=== PATIENT | female | born 1960 | race Hispanic/Latino ===

== ENCOUNTER 2021-04-06 22:45 | Emergency (ER) | payer OTHER ==
[~2021-04-06] VITALS: Ht 162.6 cm; Wt 81.6 kg
[2021-04-06 23:11] LABS: BASOPHILS % (AUTO) 0.9 % (0.0-5.0); EOSINOPHILS % (AUTO) 1.6 % (0.0-8.0); HEMATOCRIT 41.4 % (36-48); LYMPHOCYTES % (AUTO) 41.5 % (21.0-51.0); MEAN CORPUSCULAR HEMOGLOBIN 27.6 pg (27.0-33.0); MEAN CORPUSCULAR HGB CONC 31.9 g/dL (32.0-36.0); MEAN CORPUSCULAR VOLUME 86.6 fL (79-99); MONOCYTES % (AUTO) 6.4 % (3.0-13.0); NEUTROPHILS % (AUTO) 49.4 % (40.0-77.0); PLATELET COUNT (AUTO) 330 K/uL (130-400); RED BLOOD CELL COUNT(AUTO) 4.78 MIL/uL (4.00-5.50); RED CELL DISTRIBUTION WIDTH 12.3 % (11.0-15.5); WHITE BLOOD COUNT (AUTO) 8.8 K/uL (4.8-10.8)
[2021-04-06 23:23] LABS: CREATININE 0.7 mg/dL (0.5-1.5); POTASSIUM 4.4 mmol/L (3.5-5.1)
[2021-04-06 23:28] LABS: ALBUMIN 3.4 g/dL (3.5-5.0); BILIRUBIN,TOTAL 0.3 mg/dL (0.2-1.0); TOTAL PROTEIN, SERUM 7.6 g/dL (6.0-8.3)
[2021-04-06 23:33] LABS: B-TYPE NATRIURETIC PEPTIDE 22 pg/mL (0-100)
[2021-04-07] MEDS ORDERED: IBUPROFEN 600 MG TABLET PO ONE (01:30)
[2021-04-07] MEDS ORDERED: NAPR-1180 PO (02:52)
[2021-04-07 03:13] VITALS: BP 139/75
== END 2021-04-07 03:25 | disposition home or self-care (01) ==
LOC: EDH 22:45
DX: R07.89 Other chest pain (principal); M19.90 Unspecified osteoarthritis, unspecified site; F41.9 Anxiety disorder, unspecified; F32.A Depression, unspecified; Z79.1 Long term (current) use of non-steroidal anti-inflammatories (NSAID)
CPT/HCPCS: 36415; 71045; 80053; 82550; 83880; 84484; 85025; 93005

== ENCOUNTER 2021-11-05 21:55 | Emergency (ER) | payer OTHER ==
[~2021-11-05] VITALS: Ht 162.6 cm; Wt 81.6 kg
[~2021-11-05 21:55] MED LIST: NAPR-1180 PO
[2021-11-05 22:20] LABS: BILIRUBIN,URINE Negative (NEGATIVE); COLOR,URINE Yellow (YELLOW); GLUCOSE, URINE (UA) Negative (NEGATIVE); KETONES,URINE Negative (NEGATIVE); LEUKOCYTE ESTERASE ,URINE Moderate (NEGATIVE); NITRATE,URINE Negative (NEGATIVE); OCCULT BLOOD,URINE Negative (NEGATIVE); PH,URINE 5.5 (5.0-8.0); PROTEIN,URINE Negative (NEGATIVE); UROBILINOGEN,URINE 0.2 mg/dL (0.2-1.0)
[2021-11-05 22:23] LABS: APPEARANCE,URINE SLIGHTLY CLOUDY (CLEAR)
[2021-11-05 22:31] LABS: BACTERIA,URINE Few /HPF (None Seen); MUCUS,URINE Few LPF (None Seen); RBC,URINE 0-1 /HPF (0-1); SQUAMOUS EPITHELIAL CELL,UR 0-2 /HPF (0-2)
[2021-11-05] MEDS ORDERED: PHEN-847 PO (22:38)
[2021-11-05 22:40] VITALS: BP 138/86
[2021-11-05] MEDS ORDERED: PHENAZOPYRIDINE HCL 200 MG TABLET PO ONE (23:00)
== END 2021-11-05 22:51 | disposition home or self-care (01) ==
LOC: EDH 21:55
DX: R30.0 Dysuria (principal); R35.0 Frequency of micturition; F41.9 Anxiety disorder, unspecified; F32.A Depression, unspecified; E66.9 Obesity, unspecified; Z68.30 Body mass index [BMI] 30.0-30.9, adult; Z79.1 Long term (current) use of non-steroidal anti-inflammatories (NSAID); Z90.710 Acquired absence of both cervix and uterus
CPT/HCPCS: 81001; 87088

== ENCOUNTER 2023-05-05 18:58 | Emergency (ER) | payer BC ==
[~2023-05-05] VITALS: Ht 162.6 cm; Wt 81.2 kg
[~2023-05-05 18:58] MED LIST changes: +PHEN-847 PO
[2023-05-05] MEDS ORDERED: IBUPROFEN 800 MG TAB PO ONE (22:30)
[2023-05-05] MEDS ORDERED: CYCLOBENZAPRINE HCL 10 MG TABLET PO ONE (22:30)
[2023-05-06] MEDS ORDERED: IBUP-2077 PO (00:27)
[2023-05-06] MEDS ORDERED: CYCL-309 PO (00:27)
[2023-05-06 00:33] VITALS: BP 130/74; PULSE 74; RESP 18; O2SAT 98
== END 2023-05-06 00:37 | disposition home or self-care (01) ==
LOC: EDH 18:58
DX: S39.012A Strain of muscle, fascia and tendon of lower back, initial encounter (principal); E66.9 Obesity, unspecified; E78.00 Pure hypercholesterolemia, unspecified; F41.9 Anxiety disorder, unspecified; X58.XXXA Exposure to other specified factors, initial encounter; Y93.89 Activity, other specified; Y92.89 Other specified places as the place of occurrence of the external cause; Y99.8 Other external cause status